=== PATIENT | female | born 1985 | race Caucasian/White ===

== ENCOUNTER 2017-09-22 19:48 | Emergency (ER) | payer OTHER ==
[~2017-09-22] VITALS: Ht 167.6 cm; Wt 106.9 kg
[~2017-09-22 19:48] MED LIST: ALPRAZOLAM1 MG; AMOXICILLIN500 MG; BUPRENORPHIN SUB 8MG PO; BUPRENORPHINE HC2 MG SL; FLEET ENEMA EX230 ML PR; JUNEL1 EAC1 PO; KRISTALOSE20 GM PO; LITHIUM CARBON300 MG; METHADONE5 MG PO; METHYLDOPA250 MG PO; MOTRIN800 MG PO; Motrin PO; NOHOMEMEDS; NULYTELY SOLU4000 ML PO; NUVARING VAGIN1 EACH; OXYCODONE-APAP1 EACH; PERCOCET 5/31 TABLET PO; POLYETHYLENE G255 GM; PRENATAL TABLE1 EAC3 PO; PURELAX17 GM PO; VENLAFAXINE H37.5 M3; WELLBUTRIN100 MG PO; [UNRECOGNIZED DRUG - OTHER]
[2017-09-22 22:02] LABS: HEMATOCRIT 40.6 % (36.0-46.0); HEMOGLOBIN 13.9 G/DL (11.9-15.5); MCH 30.3 PG (29.0-34.0); MCHC 34.2 G/DL (30.0-36.0); MCV 88.5 FL (83-99); PLATELET COUNT 162 K/uL (156-360); RBC DIS.WIDTH-CV 12.7 % (11.8-14.6); RBC DIS.WIDTH-SD 41.1 % (39-53); RED BLOOD COUNT 4.59 M/uL (3.80-5.20)
[2017-09-22 22:17] LABS: PTT 27.3 SEC (25-37)
[2017-09-22 22:25] LABS: CHLORIDE 108 mEq/L (99-109); SODIUM 140 mEq/L (136-147)
[2017-09-22 22:27] LABS: GLUCOSE 97 mg/dL (70-99)
[2017-09-22 22:31] LABS: CREATININE 0.7 mg/dL (0.6-1.3); GFR ESTIMATE (CALCULATED) > 59 mL/min/
[2017-09-22 22:32] LABS: UREA NITROGEN (BUN) 8 mg/dL (9-23)
[2017-09-23 00:01] VITALS: BP 129/87
== END 2017-09-23 00:02 | disposition home or self-care (01) ==
LOC: EME 19:48
PROVIDERS: Emergency Medicine
DX: M79.662 Pain in left lower leg (principal); M54.32 Sciatica, left side; I10 Essential (primary) hypertension; F31.9 Bipolar disorder, unspecified; F41.9 Anxiety disorder, unspecified; F32.9 Major depressive disorder, single episode, unspecified; F17.200 Nicotine dependence, unspecified, uncomplicated; Z90.49 Acquired absence of other specified parts of digestive tract
CPT/HCPCS: 80048; 85027; 85610; 85730; 93971; 99281; 99284